=== PATIENT | male | born 1975 | race Caucasian/White ===

== ENCOUNTER 2016-11-02 23:30 | Emergency (ER) | payer OTHER ==
[2016-11-02] MEDS ORDERED: HYDROmorphone 2 MG/1 ML IVP ONE (23:45)
[2016-11-02] MEDS ORDERED: NORMAL SALINE 10 ML SYRINGE FLUSH IVP PRN (23:45)
[2016-11-02] MEDS ORDERED: KETOROLAC 30 MG/1 ML VIAL IVP ONE (23:45)
[2016-11-02] MEDS ORDERED: ONDANSETRON 4 MG/2 ML VIAL IVP ONE (23:45)
[2016-11-02] MEDS ORDERED: TAMSULOSIN 0.4 MG CAPSULE PO ONE ×2 (23:46→23:51)
[2016-11-02 23:53] LABS: BASOPHILS # (AUTO) 0.13 10*3/UL; BASOPHILS % (AUTO) 1.8 % (0-1); EOSINOPHILS # (AUTO) 0.29 10*3/UL; EOSINOPHILS % (AUTO) 4.1 % (0-8); LYMPHOCYTES # (AUTO) 2.32 10*3/uL; MEAN CORPUSCULAR HEMOGLOBIN 33.4 PG (27-31); MEAN CORPUSCULAR HGB CONC 36.2 g/dL (33-37); MEAN CORPUSCULAR VOLUME 92.3 FL (80-90); MONOCYTES # (AUTO) 0.69 10*3/UL (0.3-0.8); MONOCYTES % (AUTO) 9.7 % (5-15); NEUTROPHILS # (AUTO) 3.69 10*3/UL; NEUTROPHILS % (AUTO) 51.8 % (50-80); RED BLOOD COUNT 5.09 10^6/uL (4.70-6.10)
[2016-11-02 23:56] LABS: PLATELET MORPHOLOGY COMMENT NORMAL MORPHOLOGY (NORM); RBC MORPHOLOGY COMMENT NORMAL MORPHOLOGY (NORM); WBC MORPHOLOGY COMMENT NORMAL MORPHOLOGY (NORM)
[2016-11-03 00:02] LABS: BLOOD UREA NITROGEN 16 mg/dL (7-22); CALCIUM 9.2 mg/dL (8.7-10.7); EST GLOMERULAR FILTRATION > 60 (>60 ml/min/1.73m(2)); LIPASE 135 IU/L (23-300); SERUM ALBUMIN 4.3 g/dL (3.5-4.8)
[2016-11-03] MEDS: Sodium Chloride 0.9% 1,000 ML PRIMARY IV ONE ×2 (00:03→00:35)
[2016-11-03 00:28] VITALS: RESP 18; TEMP 97.2
[2016-11-03] MEDS ORDERED: Sodium Chloride 0.9% 1,000 ML PRIMARY IV ONE ×2 (00:43→02:17)
[2016-11-03] MEDS ORDERED: HYDROmorphone 2 MG/1 ML IVP ONE (00:53)
[2016-11-03] MEDS ORDERED: diphenhydrAMINE 50 MG/1 ML VIAL ONE (01:26)
[2016-11-03] MEDS ORDERED: diphenhydrAMINE 50 MG/1 ML VIAL IVP ONE (01:35)
--- NOTE | 2016-11-03 01:41 | DI ---
HISTORY: Abdominal pain. COMPARISON: None available. TECHNIQUE: Contiguous axial images of the abdomen and pelvis were obtained from the lung bases throu gh the ischial tuberosities. The images were then submitted for interpretation. FINDINGS: The heart is within normal limits. No acute pathology is seen at the lung bases. The liver is grossly unremarkable. The spleen is within normal limits. The gallbladder is grossly u nremarkable. There is no biliary ductal dilatation. The pancreas and adrenal glands are unremarkabl e. There is a 5 mm left ureteral calculus at the ureterovesical junction causing mild hydroureter an d hydronephrosis. There is a nonobstructing 3 mm right upper pole renal calculus, without evidence o f hydronephrosis. The imaged bowel, mesentery, and omentum are unremarkable without evidence of obstruction or perforat ion. The appendix is unremarkable. There is no lymphadenopathy by size criteria. There is no ascite s. There is focal marked degenerative spondylosis at L4-5, nonspecific. No acute skeletal pathology is seen. IMPRESSION: 1. Distal left ureteral 5 mm calculus causing mild hydroureter and hydronephrosis. 2. Nonobstructing 3 mm upper pole right renal calculus, without hydronephrosis.
[2016-11-03] MEDS ORDERED: HYDROcodone-APAP 10 MG-325 MG TABLET PO ONE (03:14)
[2016-11-03 04:22] LABS: CLARITY,URINE CLOUDY (CLEAR); COLOR,URINE YELLOW; PH,URINE 5.5 (5.0-8.5); URINE SAMPLE TYPE CLEAN CATCH URINE
[2016-11-03 04:23] LABS: BACTERIA,URINE RARE; BILIRUBIN,URINE NEGATIVE (NEG); GLUCOSE, URINE (UA) NEGATIVE (NEG); NITRATE,URINE NEGATIVE (NEG); OCCULT BLOOD,URINE LARGE (NEG); PROTEIN,URINE NEGATIVE (NEG); RBC,URINE 25-40 /hpf; SQUAMOUS EPITHELIAL CELL,UR FEW; UROBILINOGEN,URINE 0.2 EU/dL (0.2)
[2016-11-03] MEDS ORDERED: HYDROcodone-APAP 10 MG-325 MG TABLET PO PRN (04:38)
--- NOTE | 2016-11-03 07:10 | PDOC ---
Abdomen/Flank HPI - General Chief Complaint: Abdomen Pain Stated Complaint: ABD/FLANK PAIN Date Seen by Provider: 11/03/16 Time Seen by Provider: 23:38 Source: POSITIVE: Patient Exam Limitations: POSITIVE: No limitations Nurse's Notes Reviewed & Considered: Yes - History of Present Illness Initial Comments: The patient is a 41-year-old male. Approximately one hour [employer] he was awakened by pain in the left flank and left upper quadrant of the abdomen. He's had some associated nausea and one episode of vomiting. Onset was abrupt and awoke him from sleep. Patient has not had any history of previous abdominal surgery. No fevers or chills. He has no known chronic medical problems and is on no medications and has no allergies. He denies any hematemesis, melena, hematochezia, dysuria or gross hematuria. Body Location Affected: REPORTS: Abdomen (Left side of abdomen), Back (Left flank) Timing: REPORTS: Abrupt Duration: 1 hour Severity: Severe Quality: REPORTS: "Pain" Abdominal Pain Onset Location: REPORTS: LUQ, LLQ, Flank (Left) Abdominal Pain Radiation: REPORTS: LLQ Context: REPORTS: Other (Onset while sleeping) Modifying Factors: improves with: Vomiting (Times one) Associated Symptoms: REPORTS: Nausea, Vomiting Similar Symptoms Previously: No Recent Care Received: REPORTS: Denies Any Prior Injuries Related to Current Complaint?: No - Patient Home Medications Home Medications: Home Medications Testosterone Cypionate 300 mg IM MONTHLY ml 10/10/15 Testosterone Enanthate 400 mg IM MONTHLY #1 vial 11/19/15 Hydrocodone Bit/Acetaminophen [[place] 10-325 Tablet] 1 tab PO Q4H PRN #20 tab Tamsulosin HCl 0.4 mg PO DAILY #12 cap 11/03/16 - Patient Allergies Allergies/Adverse Reactions: Allergies Allergy/AdvReac Type Severity Reaction Status Date / Time Gadolinium-Containing Allergy Mild ITCHING Verified 11/03/16 01:46 Contrast Medi Iodinated Contrast- Oral and Allergy Mild ITCHING Verified 11/03/16 01:46 IV Dye Past Medical History - heen HEENT History: Denies History Cardiovascular History: Denies History Respiratory History: Denies History Gastrointestinal History: Denies History Genitourinary History: Denies History Endocrine History: Denies History Musculoskeletal History: Back Injury Neurological History: Denies History Blood Disorders: Denies History Psychiatric History: Denies History Cancer History: Denies History In Past Year Been Physically Harmed or Verbally Threatened: No History of MDRO: No Tobacco Use: Current Every Day Smoker Alcohol Use: Occasionally Substance Use Type: None Previous Surgical History: Yes Type / Date of Surgery: T&A, L5-S1 DISCECTOMY, COLLAR BONE Significant Family History: No pertinent family hx Past Medical History Reviewed: Reviewed - No Changes ROS - Limitations ROS Limitations: No Limitations Constitution: REPORTS: Denies Symptoms Cardiovascular: REPORTS: Denies Cardiac Symptoms Respiratory: REPORTS: Denies Resp Symptoms Neurological: REPORTS: Denies Neuro Symptoms Gastrointestinal: REPORTS: Abdominal Pain, Nausea, Vomitting Endocrine: REPORTS: Denies Symptoms Musculoskeletal: REPORTS: Denies MS Symptoms Genitourinary: REPORTS: Flank Pain (Left flank pain) Eyes: REPORTS: Denies Symptoms ENT: REPORTS: Denies Symptoms Skin: REPORTS: Denies Skin Symptoms Lympathic: REPORTS: Denies Lympathic Symptoms Immunologic: POSITIVE: Denies Symptoms Psychiatric: POSITIVE: Denies Psych Symptoms Abdominal/Flank Pain PE - General Appearance General Appearance: POSITIVE: Alert, Cooperative, No Acute Distress, No Evidence of Trauma - HEENT HEENT: POSITIVE: Head Inspection Nml, Eyes Inspection Nml, Ears Inspection Nml, Nose Inspection Nml, Oral/Dental Inspect. Nml, Pharynx Inspect. Nml, PERRL, EOMI - Neck Neck: POSITIVE: Normal Inspection, No Apparent Injury - Respiratory Respiratory: POSITIVE: No Respiratory Distress, Breath Sounds Normal, Chest Non- Tender - Cardiovascular Cardiovascular: POSITIVE: Regular Rate and Rhythm, Heart Sounds Normal, Equal Pulses, Strong Pulses Peripheral Pulses: Radial (R): 2+, Radial (L): 2+ - Chest Chest: POSITIVE: Non Tender - Abdomen Abdomen: Soft: (All Quadrants), Normal Bowel Sounds: (All Quadrants), Denies Tenderness: (RLQ), (RUQ), No Splenomegaly: (All Quadrants), No Hepatomegaly: ( All Quadrants), No Guarding: (All Quadrants), No Rebound: (All Quadrants), No Palpable Pulse: (All Quadrants), No Palpabale Mass: (All Quadrants), No Distention: (All Quadrants), No Rigidity: (All Quadrants), Tenderness Noted: ( All Quadrants), (LUQ), Palpable Mass Noted: (All Quadrants) Additional Abdominal Details: Abdominal examination shows bowel sounds to be active. Abdomen is minimally tender on direct palpation. There is some mild discomfort on firm deep direct palpation left upper quadrant and left flank. No masses, organomegaly or rebound. - Back Back: POSITIVE: CVA Tenderness (L) - Skin Skin: POSITIVE: Intact, Normal For Race, Warm, Dry, No Rash - Extremities Extremity: Non-Tender: (All Extremities), Normal ROM: (All Extremities), Normal Inspection: (All Extremities) - Neurological Neurological: POSITIVE: Oriented X3, pre billing specialist Normal As Tested, Motor Normal, Sensation Normal, 5, 6 - Psychological Psychiatric: POSITIVE: Affect Appropriate, Mood Appropriate Images - Complete Complete: 1 - Area of described pain 2 - Area of described pain Abdomen Progress - Results Reviewed by me Xrays/CTs/US Reviewed by me: Yes Discussed with Radiologist: Yes Radiology Findings: CT abdomen and pelvis with IV contrast shows a left ureteral calculus distally, 5 mm in diameter. With some mild hydroureter and hydronephrosis on left Lab Results Reviewed: Yes Lab Results:: Laboratory Results 11/02/16 11/03/16 Range/Units 23:40 02:25 WBC 7.13 (4.8-10.8) 10^3/uL RBC 5.09 (4.70-6.10) 10^6/uL Hgb 17.0 (14.0-18.0) g/dL Hct 47.0 (42.0-52.0) % MCV 92.3 H (80-90) FL MCH 33.4 H (27-31) PG MCHC 36.2 (33-37) g/dL RDW Std Deviation 41.2 (39-50) fL RDW Coeff of Lulu 12.5 (11.5-14.5) % Plt Count 299 (140-350) 10*3/uL MPV 10.0 (7.4-12.2) FL Immature Gran % (Auto) 0.1 (0-5) % Neut % (Auto) 51.8 (50-80) % Lymph % (Auto) 32.5 (10-50) % Cobb % (Auto) 9.7 (5-15) % Eos % (Auto) 4.1 (0-8) % Baso % (Auto) 1.8 H (0-1) % Immature Gran # (Auto) 0.01 10*3/UL Neut # (Auto) 3.69 10*3/UL Lymph # (Auto) 2.32 10*3/uL Cobb # (Auto) 0.69 (0.3-0.8) 10*3/UL Eos # (Auto) 0.29 10*3/UL Baso # (Auto) 0.13 10*3/UL WBC Morphology Comment Normal morphology (NORM) Plt Morphology Comment Normal morphology (NORM) RBC Morph Comment Normal morphology (NORM) Sodium 139 (135-145) meq/L Potassium 4.0 (3.8-5.2) meq/L Chloride 101 (98-112) meq/L Carbon Dioxide 26 (23-33) meq/L Anion Gap 12 (5-20) BUN 16 (7-22) mg/dL Creatinine 1.3 (0.70-1.50) mg/dL Estimated GFR > 60 (>60 ml/min/1.73m(2)) BUN/Creatinine Ratio 12.30 (6-20) Glucose 84 (78-110) mg/dL Calculated Osmolality 287.0 (267-292) mOsm/kg Calcium 9.2 (8.7-10.7) mg/dL Total Bilirubin 0.7 (0.3-1.2) mg/dL AST 28 (21-57) IU/L ALT 35 (21-72) IU/L Alkaline Phosphatase 71 (38-126) IU/L Total Protein 7.2 (6.1-8.0) g/dL Albumin 4.3 (3.5-4.8) g/dL Globulin 2.9 (2.50-4.10) g/dL Albumin/Globulin Ratio 1.40 (1.3-2.0) mg/g Amylase 79 (30-110) U/L Lipase 135 (23-300) IU/L Ur Collection Type Clean catch urine Urine Color Yellow Urine Clarity Cloudy (CLEAR) Urine pH 5.5 (5.0-8.5) Ur Specific Andreas >1.050 (1.005-1.030) Urine Protein Negative (NEG) mg/dl Urine Glucose (UA) Negative (NEG) mg/dL Urine Ketones Negative (NEG) Urine Occult Blood Large H (NEG) Urine Nitrate Negative (NEG) Urine Bilirubin Negative (NEG) Urine Urobilinogen 0.2 (0.2) EU/dL Ur Leukocyte Esterase Negative (NEG) Urine RBC 25-40 (NONE) /hpf Urine WBC None (NONE) Ur Squamous Epith Cells Few (NONE) Ur Renal Epithelial Cell None (NONE) Urine Crystals None Urine Bacteria Rare (NONE) Urine Casts None (NONE) Urine Mucus None (NONE) Urine Trichomonas None (NONE) Urine Yeast None (NONE) Ur Culture Indicated? 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 Patient given 20 mg of diphenhydramine and observed. Patient asymptomatic on discharge. Abdominal pain resolved. Status: POSITIVE: Improved, Re-Examined - Consult Counseled: POSITIVE: Patient, Family (), RE: Lab Results, RE: Radiology Results, RE: DX, RE: Need for F/U Patient Care Time - Estimated PCT Patient Care Time (In Minutes): 60 Vital Signs - Recent Vital Signs Vital Signs: Vital Signs (Last 8 hours) Temp Pulse Resp BP Pulse Ox 11/02/16 23:30 97.2 F 87 18 122/66 98 - VS Reviewed Vital Signs Reviewed: Yes Discharge Clinical Impression: Ureterolithiasis Discharge Disposition: Discharged to Home Condition: Stable Prescriptions / Orders: Hydrocodone Bit/Acetaminophen [[place] 10-325 Tablet] 1 tab PO Q4H PRN #20 tab PRN Reason: Pain Tamsulosin HCl 0.4 mg PO DAILY #12 cap Patient Instructions Given at Discharge: Ureteral Stones (ED) Additional Instructions: Strain your urine to check for stones. Flomax, one daily. You may have a recurrence of pain before your stone is passed. Take [place], one every 4 hours as necessary for [id number] pain. Follow-up with urology in [place] if you have not passed her stone in 10 days. Return here anytime if condition worsens in any way, especially if you develop fevers or chills. Follow Up With: NONE,NONE [Primary Care Provider] - (Instructions as above. Follow-up with urology in [place] in 10 days if you have not passed her stone. Return here anytime if condition worsens.)
== END 2016-11-03 03:30 | disposition home or self-care (01) ==
LOC: ER 23:30
DX: N13.2 Hydronephrosis with renal and ureteral calculous obstruction (principal); R11.2 Nausea with vomiting, unspecified; R10.12 Left upper quadrant pain; R10.32 Left lower quadrant pain
CPT/HCPCS: 74177; 80053; 81001; 81003; 82150; 83690; 85025; 96361; 96374; 96375; 96376; 99283 ×2; J1170 ×2; J1200; J1885; J2405; J7030